=== PATIENT | female | born 1970 | race African-American/Black ===

== ENCOUNTER 2016-08-13 11:06 | Emergency (ER) | payer MEDICAID ==
[~2016-08-13 11:06] MED LIST: ALBUAER3 IN; NOR5T PO; SPIR25TA89 PO
== END 2016-08-13 18:49 | disposition left against medical advice (07) ==
LOC: ER 11:06
DX: R20.0 Anesthesia of skin (principal); R25.9 Unspecified abnormal involuntary movements; Z53.21 Procedure and treatment not carried out due to patient leaving prior to being seen by health care provider
CPT/HCPCS: 93005

== ENCOUNTER 2017-01-17 15:39 | Emergency (ER) | payer MEDICAID ==
[~2017-01-17] VITALS: Ht 154.9 cm; Wt 73.9 kg
[~2017-01-17 15:39] MED LIST changes: +HYDR-4663 PO; -NOR5T PO
[2017-01-17 16:32] LABS: Basophils # (auto) 0 uL; Basophils % (auto) 0.5 % (0.0-2.0); CONDITION Y; Eosinophils # (auto) 0.2 uL; Eosinophils % (auto) 3.5 % (0.0-7.0); Lymphocytes # (auto) 1.3 uL; Lymphocytes % (auto) 20.6 % (10.0-50.0); Mean Corpuscular Hemoglobin 30.4 pg (28.0-32.0); Mean Corpuscular Hgb Conc. 34.4 g/dL (32.0-36.0); Mean Corpuscular Volume 88.2 fL (80.0-100.0); Mean Platelet Volume 7.2 fL (7.4-10.4); Monocytes # (auto) 0.8 uL; Monocytes % (auto) 12.3 % (0.0-12.0); Neutrophils % (auto) 63.1 % (37.0-80.0); Platelet Count (auto) 240 10^3/uL (140-450); Red Cell Distribution Width 13.4 % (11.6-16.0); White Blood Cell 6.3 10^3/uL (4.4-10.8)
[2017-01-17 16:57] LABS: BUN/Creatinine Ratio 11.1; Calcium 8.3 mg/dL (8.5-10.1); Magnesium 2.2 mg/dL (1.6-2.6); Potassium 3.5 mmol/L (3.5-5.1)
[2017-01-17 17:02] LABS: Bilirubin, Total 0.3 mg/dL (0.2-1.0); Total Protein 7.9 g/dL (6.4-8.2)
[2017-01-17 20:10] VITALS: BP 124/80
== END 2017-01-17 20:39 | disposition home or self-care (01) ==
LOC: ER 15:42
DX: R07.9 Chest pain, unspecified (principal); Z77.22 Contact with and (suspected) exposure to environmental tobacco smoke (acute) (chronic)
CPT/HCPCS: 36415; 71020; 80053; 83735; 84484; 85025; 93005

== ENCOUNTER 2021-03-03 07:02 | Day surgery (SDC) | payer MEDICAID ==
[~2021-03-03] VITALS: Ht 154.9 cm; Wt 77.1 kg
[~2021-03-03 07:02] MED LIST changes: +ALBU108A5 IN; -ALBUAER3 IN; +APIX5TAB PO; +ASPI1TAB91 PO; +ATOR20TA50 PO; +CHOL20006 PO; +DRON400T PO; +FLUT50SP; +GABA100C9 PO; -HYDR-4663 PO; +HYDR-4798 PO; +METO-158 PO; +NIFE1TAB31 PO; +SPIR25TA8 PO; -SPIR25TA89 PO
[2021-03-03] MEDS ORDERED: HEPARIN SODIUM (PORCINE) 5000 UNITS/ML 1ML VIAL ONE (07:45)
[2021-03-03] MEDS ORDERED: VERAPAMIL 2.5MG/ML INJ 2ML VIAL IV ONE (07:47)
[2021-03-03] MEDS ORDERED: MIDAZOLAM HCL 2MG/2ML 2ml VIAL (1mg/ml) ONE (07:47)
[2021-03-03] MEDS ORDERED: fentaNYL CITRATE 100 MCG/2 ML VL ONE (07:47)
== END 2021-03-03 12:40 | disposition home or self-care (01) ==
LOC: CATH 07:02
PROVIDERS: ATTEND Internal Medicine Cardiovascular Disease
DX: R94.39 Abnormal result of other cardiovascular function study (principal); I25.10 Atherosclerotic heart disease of native coronary artery without angina pectoris; I10 Essential (primary) hypertension; E78.5 Hyperlipidemia, unspecified; I48.0 Paroxysmal atrial fibrillation; Z86.73 Personal history of transient ischemic attack (TIA), and cerebral infarction without residual deficits; J45.909 Unspecified asthma, uncomplicated; Z83.3 Family history of diabetes mellitus; Z83.438 Family history of other disorder of lipoprotein metabolism and other lipidemia; Z80.9 Family history of malignant neoplasm, unspecified; Z20.822 Contact with and (suspected) exposure to COVID-19; Z98.890 Other specified postprocedural states; Z79.899 Other long term (current) drug therapy
CPT/HCPCS: 93454; C1887; C1894; J1644; J2250; J3010; J7030; U0003; 99152

== ENCOUNTER 2021-05-24 10:40 | Outpatient (CLI) | payer MEDICAID ==
[~2021-05-24] VITALS: Ht 154.9 cm; Wt 77.1 kg
[2021-05-24] MEDS ORDERED: NIFE10CA3 PO (10:56)
[2021-05-24] MEDS ORDERED: SIMV-8 PO (10:56)
[2021-05-24] MEDS ORDERED: LIDO5DIS21 TOP (10:56)
[2021-05-24] MEDS ORDERED: METO25TA5 PO (10:57)
[2021-05-24] MEDS ORDERED: LEVA1NEB5 NEB (11:00)
[2021-05-24] MEDS ORDERED: FLUT110A INH (11:00)
[2021-08-04] MEDS ORDERED: DRON400T PO (10:06)
== END 2021-05-24 10:50 | disposition home or self-care (01) ==
LOC: LAB 10:40 → EDSTATUS 05-26 13:21
PROVIDERS: ATTEND Specialist
DX: U07.1 COVID-19 (principal); I47.1 Supraventricular tachycardia

== ENCOUNTER 2021-08-07 06:50 | Day surgery (SDC) | payer MEDICAID ==
[~2021-08-07] VITALS: Ht 154.9 cm; Wt 80.3 kg
[~2021-08-07 06:50] MED LIST changes: -ATOR20TA50 PO; -CHOL20006 PO; +FLUT110A INH; +LEVA1NEB5 NEB; +LIDO5DIS21 TOP; -METO-158 PO; +METO25TA5 PO; +NIFE10CA3 PO; -NIFE1TAB31 PO; +SIMV-8 PO
[2021-08-07] MEDS ORDERED: LIDOCAINE 2%HCL (LOCAL ANESTH.) INJ 10ml MDV ONE (08:01)
[2021-08-07] MEDS ORDERED: fentaNYL CITRATE 100 MCG/2 ML VL ONE (08:04)
[2021-08-07] MEDS ORDERED: MIDAZOLAM HCL 2MG/2ML 2ml VIAL (1mg/ml) ONE (08:05)
== END 2021-08-07 11:40 | disposition home or self-care (01) ==
LOC: CATH 06:50
PROVIDERS: ATTEND Specialist
DX: I47.1 Supraventricular tachycardia (principal); I48.91 Unspecified atrial fibrillation; I10 Essential (primary) hypertension; E78.5 Hyperlipidemia, unspecified; J45.909 Unspecified asthma, uncomplicated; Z95.5 Presence of coronary angioplasty implant and graft; Z82.49 Family history of ischemic heart disease and other diseases of the circulatory system; Z83.3 Family history of diabetes mellitus; Z83.42 Family history of familial hypercholesterolemia; Z80.8 Family history of malignant neoplasm of other organs or systems; Z86.73 Personal history of transient ischemic attack (TIA), and cerebral infarction without residual deficits; Z79.02 Long term (current) use of antithrombotics/antiplatelets; Z20.822 Contact with and (suspected) exposure to COVID-19
CPT/HCPCS: 93619; C1730; C1894; J1644; J2001; J2250; J3010; J7030; U0003; 99152; 99153

== ENCOUNTER 2021-11-15 10:09 | Emergency (ER) | payer MEDICAID ==
[~2021-11-15] VITALS: Ht 154.9 cm; Wt 81.6 kg
[2021-11-15 11:14] VITALS: BP 150/84
[2021-11-15] MEDS ORDERED: TRIA0.02 TOP (11:19)
[2021-11-15] MEDS ORDERED: CEPH500C PO (11:19)
== END 2021-11-15 11:28 | disposition home or self-care (01) ==
LOC: ER 10:09
DX: S80.861A Insect bite (nonvenomous), right lower leg, initial encounter (principal); T78.40XA Allergy, unspecified, initial encounter; J45.909 Unspecified asthma, uncomplicated; E78.5 Hyperlipidemia, unspecified; I10 Essential (primary) hypertension; Z98.51 Tubal ligation status; W57.XXXA Bitten or stung by nonvenomous insect and other nonvenomous arthropods, initial encounter; Y93.89 Activity, other specified; Y92.89 Other specified places as the place of occurrence of the external cause; Y99.8 Other external cause status

== ENCOUNTER 2022-09-10 12:18 | Emergency (ER) | payer MEDICAID ==
[~2022-09-10] VITALS: Ht 154.9 cm; Wt 81.0 kg
[~2022-09-10 12:18] MED LIST changes: +CEPH500C PO; +TRIA0.02 TOP
[2022-09-10 17:05] VITALS: BP 124/67
== END 2022-09-10 17:12 | disposition home or self-care (01) ==
LOC: ER 12:18
DX: R59.1 Generalized enlarged lymph nodes (principal); I48.91 Unspecified atrial fibrillation; J45.909 Unspecified asthma, uncomplicated; E78.5 Hyperlipidemia, unspecified; I10 Essential (primary) hypertension; Z77.22 Contact with and (suspected) exposure to environmental tobacco smoke (acute) (chronic); Z98.51 Tubal ligation status
CPT/HCPCS: 70490; 87070; 87880

== ENCOUNTER 2023-03-18 08:36 | Emergency (ER) | payer MEDICAID ==
[~2023-03-18] VITALS: Ht 162.6 cm; Wt 76.5 kg
[~2023-03-18 08:36] MED LIST changes: -ASPI1TAB91 PO; +ASPI81TA28 PO; +GABA-1308 PO; -GABA100C9 PO; -NIFE10CA3 PO; +NIFE10CA58 PO; -SIMV-8 PO; +SIMV20TA20 PO
[2023-03-18 09:09] VITALS: BP 140/95; PULSE 73; RESP 16; TEMP 97.8; O2SAT 97
[2023-03-18] MEDS ORDERED: MUPI2OIN2 EX (09:54)
[2023-03-18] MEDS ORDERED: HYDR-4902 PO (09:54)
[2023-03-18] MEDS ORDERED: DOXY100C4 PO (09:54)
== END 2023-03-18 09:59 | disposition home or self-care (01) ==
LOC: ER 08:36
DX: S93.602A Unspecified sprain of left foot, initial encounter (principal); I10 Essential (primary) hypertension; I48.91 Unspecified atrial fibrillation; E78.5 Hyperlipidemia, unspecified; J45.909 Unspecified asthma, uncomplicated; Z79.82 Long term (current) use of aspirin; Z79.899 Other long term (current) drug therapy; X58.XXXA Exposure to other specified factors, initial encounter; Y93.89 Activity, other specified; Y92.89 Other specified places as the place of occurrence of the external cause; Y99.8 Other external cause status
CPT/HCPCS: 73630